=== PATIENT | male | born 1970 | race Two or more races ===

== ENCOUNTER 2022-10-20 08:38 | Day surgery (SDC) | payer OTHER ==
[~2022-10-20] VITALS: Ht 172.7 cm; Wt 74.8 kg
[~2022-10-20 08:38] MED LIST: LOSARTAN POTASS50 MG PO; ROSUVASTATIN CAL5 MG PO
== END 2022-10-20 15:55 | disposition home or self-care (01) ==
LOC: CIR.AMB 08:38
PROVIDERS: ATTEND Orthopaedic Surgery
DX: S46.121A Laceration of muscle, fascia and tendon of long head of biceps, right arm, initial encounter (principal); I10 Essential (primary) hypertension; E78.00 Pure hypercholesterolemia, unspecified; Z86.16 Personal history of COVID-19